=== PATIENT | male | born 1990 | race Caucasian/White ===

== ENCOUNTER 2023-09-30 10:14 | Outpatient (CLI) | payer BC, SELFPAY | END 2023-09-30 10:15 | disposition home or self-care (01) | PROVIDERS: PCP Family Medicine; Visit Provider Family Medicine | DX: I10 Essential (primary) hypertension (principal); Z13.220 Encounter for screening for lipoid disorders; Z13.29 Encounter for screening for other suspected endocrine disorder | CPT/HCPCS: 80048; 80061; 84443 ==

== ENCOUNTER 2025-03-17 14:57 | Outpatient (CLI) | payer BC, SELFPAY | END 2025-03-17 14:58 | disposition home or self-care (01) | LOC: LKVREF 14:58 | PROVIDERS: PCP Family Medicine; Visit Provider Family Medicine | DX: I10 Essential (primary) hypertension (principal) | CPT/HCPCS: 80048 ==